=== PATIENT | male | born 1970 | race Hispanic/Latino ===

== ENCOUNTER 2018-03-28 10:50 | Emergency (ER) | payer BC ==
[2018-03-28] MEDS ORDERED: CYCLOBENZAPRINE 10 MG TAB ONE (11:30)
[2018-03-28] MEDS ORDERED: HYDROCODONE/APAP 10/325 TAB ONE (11:30)
[2018-03-28] MEDS ORDERED: KETOROLAC 30 MG/ML INJ ONE (11:31)
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
--- NOTE | 2018-03-28 11:54 | ER ---
Nurse's Notes [facility] Name: Danial Tejada Age: 47 yrs Sex: Male : 1970 Arrival Date: 03/28/2018 Time: 10:54 Bed 20 Private MD: Diagnosis: Strain of muscle, fascia and tendon of lower back;Low back pain Presentation: 03/28 11:00 Presenting complaint: Patient states: "I have back problems but on Sunday I was moving aa5 furniture and I think I hurt my back". Pt c/o right lower back pain. Transition of care: patient was not received from another setting of care. Onset of symptoms was March 2018. Risk Assessment: Do you want to hurt yourself or someone else? Patient reports no desire to harm self or others. Initial Sepsis Screen: Does the patient meet any 2 criteria? No. Patient's initial sepsis screen is negative. Does the patient have a suspected source of infection? No. Patient's initial sepsis screen is negative. Care prior to arrival: None. 11:00 Method Of Arrival: Ambulatory aa5 11:00 Acuity: CARISSA 4 aa5 Triage Assessment: 11:21 General: Appears in no apparent distress. uncomfortable, Behavior is calm, cooperative, hj appropriate for age. Pain: Complains of pain in back. Musculoskeletal: Circulation, motion, and sensation intact. Historical: - Allergies: 11:02 No Known Allergies; aa5 - PMHx: 11:02 Back problems/pain; aa5 - PSHx: 11:02 finger sx; aa5 - Immunization history:: Adult Immunizations unknown. - Social history:: Smoking status: Patient/guardian denies using tobacco. - Ebola Screening: : No symptoms or risks identified at this time. Screenin:20 Abuse screen: Denies threats or abuse. Denies injuries from another. Nutritional hj screening: No deficits noted. Tuberculosis screening: No symptoms or risk factors identified. Fall Risk None identified. Assessment: 11:35 Reassessment: Patient states feeling better. Pain: Pain currently is 8 out of 10 on a pc1 pain scale. Alleviated by medications. Vital Signs: 11:01 BP 144 / 92; Pulse 72; Resp 16 S; Temp 98.0(TE); Pulse Ox 100% on R/A; Weight 71.67 kg aa5 (R); Height 5 ft. 10 in. (177.80 cm) (R); Pain 10/10; 11:02 BP 144 / 92; Pulse 70; Resp 15; Pulse Ox 100% on R/A; pc1 11:01 Body Mass Index 22.67 (71.67 kg, 177.80 cm) aa5 ED Course: 10:54 Patient arrived in ED. mr 11:00 Delmar Quigley RN is Primary Nurse. hj 11:00 Arm band placed on Patient placed in an exam room, on a stretcher. aa5 11:01 Luca Begum NP is PHCP. pm1 11:01 Joshua Pickering MD is Attending Physician. pm1 11:01 Triage completed. aa5 11:21 Patient has correct armband on for positive identification. Bed in low position. Call hj light in reach. Side rails up X 1. Adult w/ patient. 11:57 No provider procedures requiring assistance completed. Patient did not have IV access hj during this emergency room visit. Administered Medications: 11:28 Drug: [place] 10 mg-325 mg 1 tabs Route: PO; pc1 11:58 Follow up: Response: No adverse reaction hj 11:29 Drug: Flexeril 10 mg Route: PO; pc1 11:58 Follow up: Response: No adverse reaction; Pain is decreased hj 11:29 Drug: TORadol 60 mg Route: IM; Site: right deltoid; pc1 11:58 Follow up: Response: No adverse reaction; Pain is decreased hj Outcome: 11:53 Discharge ordered by MD. pm1 11:57 Discharged to home ambulatory, with family. hj 11:57 Condition: stable 11:57 Discharge instructions given to patient, family, Instructed on discharge instructions, follow up and referral plans. medication usage, Demonstrated understanding of instructions, follow-up care, medications, Prescriptions given X 3. 11:58 Patient left the ED. hj Signatures: Shyann Moncada mr ValadezMl RN RN aa Delmar Quigley RN RN Luca Begum, [employer] MA[employer]OUNTS MANAGER pm1 Luca Verma pc1 Corrections: (The following items were deleted from the chart) 11:37 11:36 Condition: stable pc1 pc1
== END 2018-03-28 11:58 | disposition home or self-care (01) ==
LOC: ER 10:50
DX: S39.012A Strain of muscle, fascia and tendon of lower back, initial encounter (principal); X50.0XXA Overexertion from strenuous movement or load, initial encounter; Y93.89 Activity, other specified; Y92.9 Unspecified place or not applicable
CPT/HCPCS: 96372; 99283